=== PATIENT | female | born 1960 | race Caucasian/White ===

== ENCOUNTER 2018-03-26 11:26 | Outpatient (CLI) | payer OTHER ==
--- NOTE | 2018-03-26 11:57 | MRI ---
MRI CERVICAL SPINE WITHOUT CONTRAST: INDICATIONS: Neck pain. Cervical radiculopathy with numbness to the left upper extremity. TECHNIQUE: Multiplanar, multisequential imaging of the cervical spine obtained. FINDINGS: The cervical vertebrae maintain height and alignment. There are mild to moderate degenerative change s present with anterior osteophytes from the cervical vertebrae. Mild loss of disk space at C6-C7. No significant disk bulge or spondylosis at C2-C3. Very mild spondylytic change at C3-C4, flattening the thecal sac. The anterior subarachnoid space is preserved. There is evidence of mild right fora dorene narrowing, due to facet and uncinate hypertrophy. At C4-C5, mild disk bulge and spondylosis flatten the thecal sac and mildly efface the anterior subar achnoid space. Mild bilateral foraminal narrowing from facet and uncinate hypertrophy, more prominen t on the left due to prominent facet hypertrophy. At C5-C6, there is a pronounced disk bulge and spondylosis impinging on and mildly flattening the ant erior cord. Evidence of mild bilateral encroachment from facet and uncinate hypertrophy. At C6-C7, a prominent disk osteophyte complex projects centrally and to the left, impinging on and fl attening the anterior cord. This displaces the traversing and exiting nerve root on the left. Cord signal is normally maintained. IMPRESSION: Prominent disk bulge and spondylosis at C5-C6 and at C6-C7 impinge on the cord at both levels, as loretta cribed above. POS: ABDOUL
== END 2018-03-26 11:27 | disposition home or self-care (01) ==
LOC: TBSIIMAG 11:26
PROVIDERS: ATTEND Family Medicine
DX: M50.122 Cervical disc disorder at C5-C6 level with radiculopathy (principal); M47.22 Other spondylosis with radiculopathy, cervical region
CPT/HCPCS: 72141

== ENCOUNTER 2018-04-20 11:27 | Outpatient (CLI) | payer OTHER | END 2018-04-20 11:28 | disposition home or self-care (01) | LOC: BICMAMMO 11:27 | PROVIDERS: ATTEND Obstetrics & Gynecology | DX: Z12.31 Encounter for screening mammogram for malignant neoplasm of breast (principal); Z80.3 Family history of malignant neoplasm of breast | CPT/HCPCS: 77063; 77067 ==

== ENCOUNTER 2018-04-29 15:51 | Outpatient (CLI) | payer OTHER | END 2018-04-29 15:52 | disposition home or self-care (01) | LOC: DTY/OP 15:51 | PROVIDERS: ATTEND Neurological Surgery | DX: E11.9 Type 2 diabetes mellitus without complications (principal); E78.5 Hyperlipidemia, unspecified; I10 Essential (primary) hypertension | CPT/HCPCS: 97802 ==

== ENCOUNTER 2018-05-25 15:54 | Outpatient (CLI) | payer OTHER | END 2018-05-25 15:55 | disposition home or self-care (01) | LOC: DTY/OP 15:54 | PROVIDERS: ATTEND Neurological Surgery | DX: E78.5 Hyperlipidemia, unspecified (principal); E11.9 Type 2 diabetes mellitus without complications; I10 Essential (primary) hypertension | CPT/HCPCS: 97802 ==

== ENCOUNTER 2018-06-28 15:37 | Outpatient (CLI) | payer OTHER | END 2018-06-28 15:38 | disposition home or self-care (01) | LOC: DTY/OP 15:37 | PROVIDERS: ATTEND Neurological Surgery | DX: E78.5 Hyperlipidemia, unspecified (principal); E11.9 Type 2 diabetes mellitus without complications; I10 Essential (primary) hypertension | CPT/HCPCS: 97802 ==

== ENCOUNTER 2018-06-30 09:12 | Outpatient (CLI) | payer OTHER ==
[~2018-06-30 09:12] MED LIST: Iopamidol 370 76% 100 ML VIAL ONE
--- NOTE | 2018-06-30 15:35 | CT ---
CT ABDOMEN AND PELVIS WITH CONTRAST: Comparison: 10-21-16 History: Right lower quadrant pain for 8 days. Technique: Multiple contiguous axial images were obtained in a CT of the abdomen and pelvis with cont rast. PO contrast was administered. Coronal reformats were performed. FINDINGS: There is diffuse fatty infiltration of the liver. A gastric band is seen at the gastroesophageal junc tion. The kidneys, adrenal glands, spleen, and pancreas are unremarkable. No free air, free fluid, or stranding changes are seen in the abdomen or pelvis. The patient is status post hysterectomy. The large and small bowel are unremarkable. The appendix is not definitely seen. There is a small 2.2 cm right inguinal hernia containing one wall of bowel. The bowel is nonobstructed. Multiple laparoscopic maxi are seen in the midline of the abdomen from owen or hernia repair. No abdominal or pelvic lymphadenopathy are seen. Degenerative changes are seen in the spine. There is dilatation of the distal esophagus which also demonstrates wall thickening. The visualized inferior thorax is unremarkable. IMPRESSION: 1. Small stable right inguinal hernia without evidence of bowel obstruction. 2. Fatty liver. POS: TPC
== END 2018-06-30 09:13 | disposition home or self-care (01) ==
LOC: SCSCT 09:12
PROVIDERS: ATTEND Family Medicine
DX: R10.31 Right lower quadrant pain (principal); K40.90 Unilateral inguinal hernia, without obstruction or gangrene, not specified as recurrent; K76.0 Fatty (change of) liver, not elsewhere classified
CPT/HCPCS: 74177

== ENCOUNTER 2018-07-07 15:51 | Outpatient (CLI) | payer OTHER ==
--- NOTE | 2018-07-07 16:55 | RAD ---
CERVICAL SPINE 3 VIEWS: Date: 07/07/18 HISTORY: Neck pain. Abnormal MRI. FINDINGS: Lateral views include flexion, neutral, and extension positioning. Vertebral body heights and alignme nt are maintained. Disc space narrowing at the C6-7 level. Osteophytosis throughout the lower vertebr al bodies and facets. No abnormal translational motion. IMPRESSION: Mild degenerative changes lower cervical spine. POS: ABDOUL
== END 2018-07-07 15:52 | disposition home or self-care (01) ==
LOC: TBSIIMAG 15:51
PROVIDERS: ATTEND Neurological Surgery
DX: M47.22 Other spondylosis with radiculopathy, cervical region (principal)
CPT/HCPCS: 72040

== ENCOUNTER 2018-08-02 15:12 | Outpatient (CLI) | payer OTHER | END 2018-08-02 15:13 | disposition home or self-care (01) | LOC: DTY/OP 15:12 | PROVIDERS: ATTEND Surgery | DX: E11.9 Type 2 diabetes mellitus without complications (principal); E78.5 Hyperlipidemia, unspecified; I10 Essential (primary) hypertension | CPT/HCPCS: 97802 ==

== ENCOUNTER 2018-09-16 10:23 | Observation (INO) | payer OTHER ==
[2018-09-16] MEDS ORDERED: Nitroglycerin 2% Ointment 1 INCH/1 GM Packet ONE (11:03)
[2018-09-16] MEDS ORDERED: Aspirin Chewable 81 MG TAB ONE (11:03)
--- NOTE | 2018-09-16 11:11 | RAD ---
SINGLE VIEW CHEST: Date: 09/16/18 COMPARISON: 02/21/16. HISTORY: Chest pain. FINDINGS: Single view of the chest shows a normal sized cardiomediastinal silhouette. There is no evidence of c onsolidation, mass, or pleural effusion. The bones are unremarkable. IMPRESSION: No evidence of acute cardiopulmonary disease. POS: TPC
[2018-09-16 11:16] LABS: #Basophils 0.1 thou/uL (0.0-0.2); #Eosinphils 0.3 thou/uL (0.0-0.7); #Lymphocytes 1.8 thou/uL (1.20-3.40); #Monocytes 0.3 thou/uL (0.11-0.59); #Neutrophils 2.1 thou/uL (1.40-6.50); %Basophils 2.8 % (0.0-1.0); %Eosinophils 5.7 % (0.0-10.0); %Lymphocytes 38.9 % (21.0-51.0); %Monocytes 7.2 % (0.0-10.0); %Neutrophils 45.4 % (42.0-75.0); Hemoglobin 10.9 g/dL (12.0-16.0); Mean Corpuscular HGB CONC 30.8 g/dL (32.0-36.0); Mean Corpuscular Hemoglobin 29.7 pg (27.0-31.0); Mean Corpuscular Volume 96.4 fL (78.0-98.0); Mean Platelet Volume 6.6 fL (7.4-10.4); Platelet Count 293 thou/uL (130-400); RBC Distribution Width 12.8 % (11.5-14.5); Red Blood Cell (RBC) Count 3.68 mill/uL (4.20-5.40); White Blood Cell (WBC) Count 4.6 thou/uL (4.8-10.8)
[2018-09-16 11:37] LABS: ALT (SGPT) 25 U/L (8-55); AST (SGOT) 44 U/L (5-34); Albumin 4.2 g/dL (3.5-5.0); Alkaline Phosphatase 36 U/L (40-150); Anion Gap 14 mmol/L (10-20); BUN (Urea Nitrogen) 21 mg/dL (9.8-20.1); Bilirubin, Total 0.2 mg/dL (0.2-1.2); Calc. Creatinine Clearance 0 mL/min (70-130); Calcium 9.6 mg/dL (7.8-10.44); Carbon Dioxide 24 mmol/L (22-29); Chloride 107 mmol/L (98-107); Estimated GFR-MDRD 84; Globulin 2.8 g/dL (2.4-3.5); Glucose 95 mg/dL (70-105); Lipase 26 U/L (8-78); Potassium 4.8 mmol/L (3.5-5.1); Sodium 140 mmol/L (136-145)
--- NOTE | 2018-09-16 13:19 | CT ---
FEXAM: CT pulmonary angiogram with IV contrast and 3-D MIP reconstructions PROVIDED CLINICAL HISTORY: Chest pain COMPARISON: CT of the abdomen and pelvis dated June 30, 2018 and October 21, 2016 FINDINGS: There is no evidence for central or segmental pulmonary embolus. There is a 5 mm pulmonary nodule wit hin the lingula. There is a calcified granuloma within the right upper lobe. There is a 4 mm pulmonar y nodule within the right upper lobe adjacent to the right minor fissure. No pleural fluid or pneumot horax apparent. No evidence for thoracic lymph node enlargement. The airway appears patent and of nor mal caliber. There is stable achalasia of the esophagus. There is a gastric band involving the gastri c cardia. There is infiltration of the liver. The gallbladder is surgically absent. The osseous struc tures demonstrate no concerning lytic or blastic lesions. IMPRESSION: No evidence for central or segmental pulmonary embolus. Stable esophageal achalasia and gastric band. Small scattered pulmonary nodules. Follow-up CT examination in one year is recommended document daniel ware. Fatty liver
[2018-09-16 14:54] LABS: Troponin I Less than 0.010 ng/mL (< 0.028)
[2018-09-16] MEDS ORDERED: Iopamidol 370 76% 100 ML VIAL ONE (14:56)
[2018-09-16 16:48] VITALS: BMI 42.9
[2018-09-16 16:51] VITALS: BP 110/57; TEMP 98.1
[2018-09-16] MEDS ORDERED: Nitroglycerin 2% Ointment 1 INCH/1 GM Packet TOP SCH (18:00)
[2018-09-16 18:21] LABS: Troponin I Less than 0.010 ng/mL (< 0.028)
--- NOTE | 2018-09-17 00:35 | SS ---
DATE OF ADMISSION: 09/16/2018 DATE OF DISCHARGE: 09/16/2018 CONSULTING PHYSICIANS: None. DISCHARGE DIAGNOSES: 1. Esophageal spasm secondary to history of achalasia. 2. Incidental lung nodules, for repeat CT imaging. 3. Hypertension. 4. Hyperlipidemia. 5. Diabetes mellitus. 6. Anxiety. HOSPITAL COURSE: Ms. Guzmán is a very pleasant 57-year-old woman who presented to the ER today after experiencing an episode of central chest pain at approximately 9:00 a.m. this morning, lasting 1 hour. She describes a squeezing sensation in the center of her chest and through her back, which was a 10/10 in severity. The pain then eased on its own to a 3/10 and eventually resolved fully. She has had no further episode since then. At the time that it started, she was at work, sitting on a chair and talking to her boss. She denies any associated diaphoresis, nausea, or vomiting. Denies having any shortness of breath. The discomfort did not radiate to her neck or arms. Denies having any paresthesias or numbness to either arm. Denies any abdominal pain or cramping. In recent days, she has felt very well and denies having any cough or hemoptysis. No fevers, chills, or sweats. She has had a normal appetite. Denies any weight loss. Bowel movements have been normal and she denies any urinary symptoms. The patient has undergone recent cardiac investigations including an echo and stress test in May 2018 which were unremarkable. Her medical accounting clerk is Dr. Szymanski. She is scheduled to see him in 6 months. She denies undergoing any catheterization in the past. She had an episode of chest pain in 2014 and investigations done at that time were normal. The patient underwent an EKG in the ER, which was unremarkable. She has had serial troponins, all unremarkable. The patient has undergone CT angiogram of the chest due to elevated D-dimer, however, no evidence of PE noted. She did however have achalasia that appear stable. It is possible her episode was more so due to esophageal spasming. She has been symptomatic intermittently with dysphagia. She underwent a colonoscopy and upper endoscopy in May 2018. She had been told several years ago she had erosive esophagitis. However, this seemed to have been significantly improved on more recent endoscopy. She was incidentally found to have lung nodules, which will need to be followed up with repeat imaging to ensure they remain stable. Recent colonoscopy per patient was unremarkable. Given negative serial troponins with recent cardiac investigations that are normal, she is medically cleared for discharge. REVIEW OF SYSTEMS: Apart from those mentioned above in hospital course, all other review of systems are negative. The patient reports having occasional difficulty with swallowing, usually with meat and describes some mild discomfort. She has never experienced any regurgitation or feeling as if her food gets completely stuck. She states this happens occasionally. She has undergone barium swallow studies in the past. She does not recall the results of this. On CT imaging done in the ER, she was noted to have stable achalasia. ALLERGIES: ADHESIVE TAPE. CURRENT MEDICATIONS: 1. Vitamin D2. 2. Lorazepam. 3. Fenofibrate. 4. Nexium. 5. Rosuvastatin. 6. Lisinopril. 7. Metformin. 8. Trintellix. PAST MEDICAL HISTORY: 1. Hypertension. 2. Anxiety. 3. Hyperlipidemia. 4. Diabetes mellitus. 5. Achalasia. PAST SURGICAL HISTORY: 1. Cholecystectomy. 2. Hysterectomy. 3. Gastric banding. SOCIAL HISTORY: The patient denies any tobacco use or illicit drug use. She drinks alcohol socially. PHYSICAL EXAMINATION: GENERAL: The patient appears well developed, well nourished, is in no acute distress. VITAL SIGNS: Temperature 98.1, pulse 64, respirations 16, O2 saturation 92% on room air, blood pressure 110/57. HEENT: Normocephalic and atraumatic. Pupils are equal, round, and reactive to light. Sclerae are icterus. Oropharynx is clear. NECK: Supple without lymphadenopathy. LUNGS: Clear to auscultation bilaterally without wheezes, rales, or rhonchi. CARDIAC: Regular rate and rhythm without audible murmurs, rubs, or gallops. ABDOMEN: Obese, soft, nontender, nondistended. Normoactive bowel sounds present. No guarding or rigidity. No renal angle tenderness. EXTREMITIES: No lower leg edema. No calf tenderness. NEUROLOGIC: Alert and oriented x3. SKIN: Without rash or jaundice. LABORATORY DATA: White blood count 4.6, hemoglobin 10.9, hematocrit 35.5, platelets 293. D-dimer 0.53. Sodium 140, potassium 4.8, chloride 107, carbon dioxide 24, anion gap 14, BUN 21, creatinine 0.72, GFR 84, glucose 95, calcium 9.6, total bilirubin 0.2, AST 44, ALT 25, alkaline phosphatase 36. Troponin negative x3. Total protein 7.0, albumin 4.2, globulin 2.8, lipase 26. IMAGING DATA: 1. Chest x-ray. No evidence of acute cardiopulmonary disease. 2. CT angiogram of the chest. No evidence of central or segmental pulmonary embolus. Stable esophageal achalasia and gastric banding. Small, scattered pulmonary nodules. Followup CT examination in one year is recommended to document stability. Fatty liver infiltration noted. CONDITION: Stable at discharge. ACTIVITY: As tolerated. DIET: Heart healthy/diabetic diet. DISCHARGE MEDICATIONS: The patient advised to resume home medications. FOLLOWUP: The patient advised to follow up with her primary care physician within one week regarding the possibly clinical worsening of achalasia. Also regarding followup imaging for lung nodules found on CT angiogram. The patient was advised to follow up with her medical accounting clerk within the next couple of weeks to ensure there is no indication for repeat catheterization. DISPOSITION: Medically cleared for discharge home today, September 16, 2018. The patient's case was discussed with Dr. Rivera, who agrees with the plan of care as described above. Job ID: [id number]
== END 2018-09-16 19:20 | disposition home or self-care (01) ==
LOC: SCSER 10:23 → ERHOLD 14:38 → 2SW 16:42
PROVIDERS: ADMIT Internal Medicine; ATTEND Internal Medicine
DX: K22.0 Achalasia of cardia (principal); R07.9 Chest pain, unspecified; R91.8 Other nonspecific abnormal finding of lung field; I10 Essential (primary) hypertension; E78.5 Hyperlipidemia, unspecified; E11.9 Type 2 diabetes mellitus without complications; F41.9 Anxiety disorder, unspecified; Z79.84 Long term (current) use of oral hypoglycemic drugs; Z79.899 Other long term (current) drug therapy; Z91.048 Other nonmedicinal substance allergy status; Z98.890 Other specified postprocedural states
CPT/HCPCS: 36415; 71045; 71275; 80053; 83690; 84484; 85025; 85379; 93005; 94760; 96360; G0378; Q9967

== ENCOUNTER 2018-11-15 16:30 | Inpatient (IN) | payer OTHER ==
[2018-11-15 16:12] VITALS: BMI 43.9
[2018-11-22] MEDS ORDERED: Fentanyl 100 MCG/2 ML VIAL ONE (06:25)
[2018-11-22] MEDS ORDERED: Heparin 5,000 UNITS/ML VIAL ONE (06:39)
[2018-11-22] MEDS ORDERED: Midazolam HCl 2 mg/2 ml Vial ONE (07:12)
[2018-11-22] MEDS ORDERED: Bupivacaine/Epinephrine 0.25% 30 ML VIAL ONE (07:12)
[2018-11-22] MEDS ORDERED: Levofloxacin 500 mg/D5W 100 ml Premix Bag ONE (07:54)
[2018-11-22] MEDS ORDERED: SUGAMMADEX SODIUM 500 MG/5 ML VIAL ONE (08:46)
[2018-11-22] MEDS ORDERED: methylPREDNISolone Sod Succ 40 MG VIAL ONE (08:46)
[2018-11-22] MEDS ORDERED: Ondansetron PF 4 MG/2 ML Vial IVP PRN (09:02)
[2018-11-22] MEDS ORDERED: Dextrose 50% Abboject 50 ML SYRINGE SLOW IVP PRN (09:02)
[2018-11-22] MEDS ORDERED: Dextrose 5% in Water 1,000 ML IV PRN (09:02)
[2018-11-22] MEDS ORDERED: hydrALAZINE 20 MG/ML VIAL SLOW IVP PRN (09:02)
[2018-11-22] MEDS ORDERED: Hydrocodone-Acetamin 15 ML UDCUP PO PRN (09:02)
[2018-11-22] MEDS ORDERED: Insulin Regular 300 UNITS/3 ML VIAL SC PRN (09:02)
[2018-11-22] MEDS ORDERED: Promethazine HCl 25 MG/ML VIAL IM PRN ×3 (09:02→09:17)
[2018-11-22] MEDS ORDERED: Naloxone HCl 0.4 mg/ml Vial IV PRN (09:17)
[2018-11-22] MEDS ORDERED: diphenhydrAMINE 50 MG/ML VIAL IM PRN (09:17)
[2018-11-22] MEDS ORDERED: Zolpidem Tartrate 5 MG TAB PO PRN (09:17)
[2018-11-22] MEDS ORDERED: diphenhydrAMINE 25 MG CAP PO PRN (09:17)
[2018-11-22] MEDS ORDERED: fentaNYL Citrate/PF 2,000 MCG in Sodium Chloride 0.9% 60 ML IV PRN (09:17)
[2018-11-22] MEDS ORDERED: Promethazine HCl 25 MG/ML VIAL SLOW IVP PRN (09:17)
[2018-11-22] MEDS ORDERED: Ondansetron HCl/PF 4 MG/2 ML Vial IVP PRN (09:17)
[2018-11-22] MEDS ORDERED: Sodium Chloride 0.9% (PF) 10 ML VIAL FS PRN (09:18)
[2018-11-22] MEDS ORDERED: Communication Order-Pharmacy FS SCH (09:30)
--- NOTE | 2018-11-22 10:34 | OP ---
DATE OF PROCEDURE: 11/22/2018 PREOPERATIVE DIAGNOSIS: Dysfunctional lap band with morbid obesity. PROCEDURE PERFORMED: Laparoscopic removal of lap band port, sleeve gastrectomy, and esophagogastroscopy. INDICATIONS: A 58-year-old female, who had a lap band placed about 12 years ago. Initially did well, then had multiple problems with it. Unable to maintain any restriction, gained all her weight back, developed diabetes. FINDINGS: Intact band and port. DESCRIPTION OF PROCEDURE: After informed consent was obtained. The patient was taken to the operating room, given general endotracheal anesthesia, placed in the supine position. Abdomen was prepped and draped in usual fashion. Local anesthesia infiltrated subcutaneously and deep a 12 mm incision was performed approximately 8 inches above the xiphoid slightly to the left. A Veress needle inserted. Drop test performed. Pneumoperitoneum was created to a volume of 2 L of carbon dioxide. Utilizing a bladeless 12 mm trocar and 0-degree laparoscope, direct visual entry into the abdominal cavity was performed. Pneumoperitoneum was created to a pressure of 15 mmHg, and the patient was placed in steep reverse Trendelenburg position. Lloyd liver retractor inserted, left lobe of the liver retracted superiorly. The pylorus was identified. A 12 mm port placed on the right beneath it and two 12s placed left subcostal. The omentum was taken off the greater curvature 5 cm from the pylorus utilizing the LigaSure. Short gastrics divided with LigaSure. Left crura defined with LigaSure. A 38-[place] bougie inserted directing into the antrum. The linear 60 mm green load stapler used to divide the antrum to the bougie, gold load along the bougie, and a series of blues through the angle of His. An additional gold was also used where the stomach was thicker, where the band had been as well. Intraoperative endoscopy was then performed. The video endoscope inserted under direct vision and was advanced into the sleeve. The staple line was inspected. There was no bleeding. Staple line then tested by inflating the new stomach with pressurized air and water. Prior to any of the stapling, the lap band was found. The tubing divided. The tubing was tracked down to the buckle. The buckle was dissected. The buckle was opened and removed, then taken from around the stomach and removed from the abdomen. After the stapling was done and the scope was done, then the incision was enlarged in the left lateral incision and the port was dissected out and removed. Then, the remnant of the stomach was grasped and brought through this opening and sent to pathology for further analysis. The fascia closed with 0 Vicryl suture and the GraNee needle. Trocars and retractors removed. The skin closed with interrupted 4-0 Rapide. Dermabond applied. The patient tolerated the procedure well, transferred to Recovery in good condition. Sponge and needle count verified correct x2. Job ID: [id number]
[2018-11-22] MEDS: 1/2 NS w/KCL 20 mEq 1,000 ML IV SCH ×2 (11:59→17:12)
[2018-11-22] MEDS ORDERED: Ketorolac Tromethamine 30 MG/ML VIAL IVP SCH (12:00)
[2018-11-22] MEDS: diphenhydrAMINE 50 MG/ML VIAL IVP PRN ×5 (12:00→22:15)
[2018-11-23] MEDS: diphenhydrAMINE 50 MG/ML VIAL IVP PRN ×6 (01:24→21:18)
[2018-11-23] MEDS: 1/2 NS w/KCL 20 mEq 1,000 ML IV SCH ×2 (01:26→08:22)
[2018-11-23] MEDS: Ondansetron PF 4 MG/2 ML Vial IVP PRN ×3 (05:17→19:04)
[2018-11-23 05:35] LABS: #Lymphocytes 1.6 thou/uL (1.20-3.40); #Monocytes 0.6 thou/uL (0.11-0.59); #Neutrophils 5.4 thou/uL (1.40-6.50); %Basophils 0.4 % (0.0-1.0); %Eosinophils 0.1 % (0.0-10.0); %Lymphocytes 21.1 % (21.0-51.0); %Monocytes 7.4 % (0.0-10.0); %Neutrophils 70.9 % (42.0-75.0); Hemoglobin 11.4 g/dL (12.0-16.0); Mean Corpuscular HGB CONC 32.9 g/dL (32.0-36.0); Mean Corpuscular Hemoglobin 31.4 pg (27.0-31.0); Mean Corpuscular Volume 95.5 fL (78.0-98.0); Mean Platelet Volume 6.8 fL (7.4-10.4); Platelet Count 317 thou/uL (130-400); RBC Distribution Width 12.2 % (11.5-14.5); Red Blood Cell (RBC) Count 3.62 mill/uL (4.20-5.40); White Blood Cell (WBC) Count 7.6 thou/uL (4.8-10.8)
[2018-11-23 05:45] LABS: Anion Gap 11 mmol/L (10-20); BUN (Urea Nitrogen) 12 mg/dL (9.8-20.1); Calc. Creatinine Clearance 165 mL/min (70-130); Carbon Dioxide 27 mmol/L (22-29); Chloride 106 mmol/L (98-107); Estimated GFR-MDRD Greater than 90; Glucose 99 mg/dL (70-105); Sodium 139 mmol/L (136-145)
[2018-11-23] MEDS: Pantoprazole 40 MG VIAL IVP SCH (08:08)
[2018-11-23] MEDS: Enoxaparin Sodium 40 MG/0.4 ML SYRINGE SC SCH (08:13)
--- NOTE | 2018-11-23 09:08 | RAD ---
15 cc Gastrografin swallow: 11/23/2018 HISTORY: Evaluate for leak or obstruction following gastric sleeve procedure. FINDINGS: The patient ingested 15 cc of Gastrografin and the contrast media was followed from the dis peyton esophagus to the duodenum. No evidence for leak or obstruction is seen. Of note, there is marked delay of contrast media passing through the stomach, especially at the region of the gastric f undus/proximal body. Exposure data: 2.4 minutes fluoroscopic time, 33.933 Gy per centimeter squared IMPRESSION: No evidence for leak or obstruction. Slow transit of the contrast media through the proxi mal aspect of the stomach.
[2018-11-23] MEDS ORDERED: fentaNYL Citrate/PF 2,000 MCG in Sodium Chloride 0.9% 60 ML IV PRN (12:46)
[2018-11-23] MEDS: D5 1/2 NS w/20 mEq KCL 1,000 ML IV SCH ×2 (16:48→23:30)
[2018-11-23] MEDS ORDERED: Hydrocodone-Acetamin 15 ML UDCUP PO PRN (21:52)
[2018-11-23] MEDS: Ketorolac Tromethamine 30 MG/ML VIAL IVP SCH (23:25)
[2018-11-23] MEDS: Acetaminophen 1,000 MG in Premix Bag 1 BAG IVPB SCH (23:25)
[2018-11-24] MEDS: Ketorolac Tromethamine 30 MG/ML VIAL IVP SCH ×2 (05:15→11:22)
[2018-11-24] MEDS: Acetaminophen 1,000 MG in Premix Bag 1 BAG IVPB SCH ×2 (05:15→11:21)
[2018-11-24] MEDS: Enoxaparin Sodium 40 MG/0.4 ML SYRINGE SC SCH (08:39)
[2018-11-24] MEDS: Pantoprazole 40 MG VIAL IVP SCH (08:40)
[2018-11-24] MEDS: D5 1/2 NS w/20 mEq KCL 1,000 ML IV SCH (08:41)
[2018-11-24] MEDS: Ondansetron PF 4 MG/2 ML Vial IVP PRN (08:58)
--- NOTE | 2018-11-24 09:48 | DIS ---
DATE OF ADMISSION: 11/22/2018 DATE OF DISCHARGE: 11/23/2018 DISCHARGE DIAGNOSES: Lap band intolerance, morbid obesity. PROCEDURES DURING ADMISSION: Laparoscopic removal of band and port, sleeve gastrectomy, intraoperative esophagogastroscopy, and postoperative Gastrografin swallow. HOSPITAL COURSE: The patient was admitted, taken to the operating room where she underwent a removal of band and port with conversion to sleeve. Postoperatively, she has done well. She had a little bit of nausea. Her x-ray was fine. She is now tolerating liquids well. She will be discharged in good condition on hydrocodone and Zofran. She will follow up with me in 1 week. Job ID: [id number]
--- NOTE | 2018-11-24 10:37 | PRG ---
DATE OF SERVICE: 11/24/2018 SUBJECTIVE: The patient was seen and examined for medical management. The pain is controlled at this time. She had some issues with hypoglycemia, that has improved. She denies any fevers, chills, chest pain, shortness of breath, or lower extremity edema. REVIEW OF SYSTEMS: All other review of systems was reviewed and was found negative. PHYSICAL EXAMINATION: VITAL SIGNS: Temperature 98.5, pulse rate of 67, respirations of 16, blood pressure 102/68, and O2 saturations 93% on room air. GENERAL: A 58-year-old female, in no apparent distress. Pain controlled. LUNGS: Clear to auscultation bilaterally. No wheezing, rales, or rhonchi. HEART: S1, S2 present. Regular rate and rhythm. ABDOMEN: Soft. Bowel sounds present. EXTREMITIES: No edema or calf tenderness. NEUROLOGIC: Grossly nonfocal. LABORATORY FINDINGS: WBC 7.6, hemoglobin 11.4, hematocrit 34.5, platelets 317. Chemistry showed sodium 139, potassium 5, chloride 106, bicarb 27, BUN 12, creatinine 0.67. Hemoglobin A1c 5.8. IMPRESSION: 1. Status post sleeve gastrectomy. 2. Hypertension. 3. Diabetes mellitus, type 2 with hypoglycemia. 4. Anxiety. 5. Morbid obesity with a BMI of 43.9. 6. Chronic normochromic normocytic anemia. 7. History of esophageal spasm due to achalasia. PLAN: We will continue to monitor Accu-Cheks before meals and at bedtime. Metformin will be held. We will continue IV fluids with dextrose until tolerating p.o. GI prophylaxis. Her last blood pressure was 102/68. We will hold lisinopril for now. We will continue to monitor. DVT prophylaxis with SCDs as well as Lovenox. Job ID: [id number]
[2018-11-24 11:17] VITALS: BP 106/66; TEMP 98
--- NOTE | 2018-11-24 12:00 | DIS ---
DATE OF ADMISSION: 11/22/2018 DATE OF DISCHARGE: 11/24/2018 DISCHARGE DIAGNOSES: Band intolerance and morbid obesity. PROCEDURES DURING ADMISSION: Laparoscopic removal of band and port, sleeve gastrectomy, intraoperative esophagogastroduodenoscopy, postoperative Gastrografin swallow. HOSPITAL COURSE: The patient was admitted and taken to the operating room, where she underwent port and band removal, sleeve gastrectomy. Postoperatively, she had an x-ray that was fine, but she had excessive nausea, turned out, it was related to the narcotics. Once that was stopped, she is fine. She is tolerating liquids well. Pain is controlled. She is discharged home on Zofran. I have also given her some hydrocodone just in case, otherwise she will take liquid Tylenol. Job ID: [id number]
== END 2018-11-24 12:45 | disposition home or self-care (01) | DRG 327 ==
LOC: SURG A 11-22 05:55 → SURG B 11-22 11:53 → EDSTATUS 11-22 16:30
PROVIDERS: ADMIT Surgery; ATTEND Surgery
PROC: 0DP64CZ Removal of Extraluminal Device from Stomach, Percutaneous Endoscopic Approach (ICD-10-PCS; principal; 2018-11-22)
PROC: 0DB64Z3 Excision of Stomach, Percutaneous Endoscopic Approach, Vertical (ICD-10-PCS; 2018-11-22)
PROC: 0DJ08ZZ Inspection of Upper Intestinal Tract, Via Natural or Artificial Opening Endoscopic (ICD-10-PCS; 2018-11-22)
DX: K95.09 Other complications of gastric band procedure (principal); Z68.41 Body mass index [BMI] 40.0-44.9, adult; E66.01 Morbid (severe) obesity due to excess calories; I10 Essential (primary) hypertension; F41.9 Anxiety disorder, unspecified; E11.649 Type 2 diabetes mellitus with hypoglycemia without coma; Z79.84 Long term (current) use of oral hypoglycemic drugs; Z79.899 Other long term (current) drug therapy
CPT/HCPCS: 36415; 36416; 74241; 80048; 85025; 88307; 88312; 94760; C9113; J0131; J0690; J1200; J1644; J1650; J1885; J1956; J2250; J2405; J2920; J3010; J3480; J3490; Q0163

== ENCOUNTER 2018-12-17 11:53 | Outpatient (CLI) | payer OTHER ==
--- NOTE | 2018-12-17 12:12 | RAD ---
EXAM: Chest 2 views: HISTORY: Solitary lung nodule COMPARISON: 11/15/2018 FINDINGS: There is a normal-sized cardiomediastinal silhouette. There is no evidence of consolidation, mass, or pleural effusion. The bones are unremarkable. IMPRESSION: No evidence of acute cardiopulmonary disease
== END 2018-12-17 11:54 | disposition home or self-care (01) ==
LOC: SCSRAD 11:53
PROVIDERS: ATTEND Family Medicine
DX: R91.1 Solitary pulmonary nodule (principal)
CPT/HCPCS: 71046

== ENCOUNTER 2019-03-07 17:03 | Outpatient (CLI) | payer OTHER ==
[2019-03-07 17:39] LABS: Hemoglobin 12.3 g/dL (12.0-16.0); Mean Corpuscular HGB CONC 33.3 g/dL (32.0-36.0); Mean Corpuscular Hemoglobin 31.8 pg (27.0-31.0); Mean Corpuscular Volume 95.4 fL (78.0-98.0); Mean Platelet Volume 7.3 fL (7.4-10.4); Platelet Count 344 thou/uL (130-400); Red Blood Cell (RBC) Count 3.88 mill/uL (4.20-5.40)
[2019-03-07 17:46] LABS: PTT 26.9 SEC (22.9-36.1); Prothrombin Time 12.8 SEC (12.0-14.7)
== END 2019-03-07 17:04 | disposition home or self-care (01) ==
LOC: LABBT 17:03
PROVIDERS: ATTEND Neurological Surgery
DX: Z01.812 Encounter for preprocedural laboratory examination (principal); M50.122 Cervical disc disorder at C5-C6 level with radiculopathy
CPT/HCPCS: 85027; 85610; 85730

== ENCOUNTER 2019-03-15 05:44 | Day surgery (SDC) | payer OTHER ==
[2019-03-07 17:19] VITALS: BMI 40.7
--- NOTE | 2019-03-09 20:17 | HP ---
HISTORY OF PRESENT ILLNESS: This is a 58-year-old female with neck and left arm pain. This has been going for almost a year and a half. She states that her left hand, the thumb and pointer and middle fingers get tingly, progressed to numbness and her arm turns into significant pain. If she turns her head just right, her arm will go numb. It wakes her up from sleep. The patient states that she has tried Medrol Dosepak, muscle relaxers, Tylenol No. 3. She has been getting injections, and frustratingly arguing with insurance company over surgery. There are pain and radiating numbness, occasional dropping of items continues without any significant improvement with injections to medications are temporary. REVIEW OF SYSTEMS: A 10-point review of systems has been completed and is negative other than stated in the above HPI. PAST MEDICAL HISTORY: Hypertension, hyperlipidemia, reflux, anxiety, seasonal allergies, arthritis, diabetes. ALLERGIES: LATEX, ADHESIVE TAPE. PAST SURGICAL HISTORY: Hysterectomy, sinus surgery, hernia repair, lap band. FAMILY HISTORY: Father is alive, diagnosed with cancer. Mother is , diagnosed with heart disease, hypertension, and stroke. One brother is due to heart disease and stroke. SOCIAL HISTORY: The patient is a nonsmoker. Denies other tobacco use. Drinks alcohol occasionally. Denies drug use. She is sexually active with her . Drinks occasional coffee. MEDICATIONS: 1. Lyrica. 2. Lisinopril. 3. Nexium. 4. Crestor. 5. Metformin. 6. Trintellix. 7. Fenofibrate. 8. Zyrtec. 9. Multivitamins. 10. Cyclobenzaprine. PHYSICAL EXAMINATION: CONSTITUTIONAL: Well-appearing, well-nourished, alert. RESPIRATIONS: Normal work of breathing on room air. HEENT. Head is normocephalic and atraumatic. Extraocular movements are intact. Hearing is intact. Moist mucous membranes. NECK: Soft, supple. No masses are noted. Range of motion is intact, nonpainful. Spurling's positive. NEUROLOGIC: Awake, alert, oriented x3. Memory, attention, and fund of knowledge are intact. Cranial nerves are tested and intact. EXTREMITIES: 5/5 bilateral strength in deltoids, biceps, triceps, wrist extension, finger extension, finger intrinsics. Decreased sensation in the left hand with significant middle finger decreased sensation back of left arm. Gait and station normal, tandem gait, off-balance. IMAGING STUDIES: MRI, cord compression at C5-C6, C6-C7. ASSESSMENT AND PLAN: Cervical disk disorder at C5-C6 and C6-C7 with radiculopathy and myelopathy. Dr. Aguillon has offered surgery, anterior cervical discectomy and fusion. The patient states that she prefers allograft and states that she is willing to proceed with surgery with the given risks. Job ID: [id number]
[2019-03-15] MEDS ORDERED: Sodium Chloride 0.9% 10 ML ONE (06:17)
[2019-03-15] MEDS ORDERED: Thrombin 5000 UNITS/5 ML VIAL ONE (06:17)
[2019-03-15] MEDS ORDERED: Fentanyl 100 MCG/2 ML VIAL ONE ×3 (06:39→11:20)
[2019-03-15] MEDS ORDERED: Midazolam HCl 2 mg/2 ml Vial ONE ×2 (06:51→08:22)
[2019-03-15] MEDS ORDERED: Ketamine 50 MG/ML (10ML VIAL) ONE (07:01)
[2019-03-15] MEDS ORDERED: Phenylephrine HCL 10 MG/ML VIAL ONE (08:02)
[2019-03-15] MEDS ORDERED: Ondansetron PF 4 MG/2 ML Vial ONE ×2 (10:15→15:41)
[2019-03-15] MEDS ORDERED: HYDROcodone/Acetaminophen 5/325 mg Tablet ONE ×2 (11:45)
[2019-03-15] MEDS ORDERED: tiZANidine HCl 4 MG TAB ONE (13:31)
[2019-03-15] MEDS ORDERED: Ondansetron ODT 4 MG TAB ONE (14:59)
[2019-03-15] MEDS ORDERED: Glycopyrrolate 0.2 MG/ML 5 ML SYRINGE ONE (15:41)
[2019-03-15] MEDS ORDERED: ePHEDrine 50 MG/ML VIAL ONE (15:41)
[2019-03-15] MEDS ORDERED: Rocuronium Bromide 10 MG/ML (10ML VIAL) ONE (15:41)
[2019-03-15] MEDS ORDERED: PROPOFOL 200 MG/20 ML VIAL ONE (15:41)
[2019-03-15] MEDS ORDERED: Lidocaine 2% PF 5 ML VIAL ONE (15:41)
[2019-03-15] MEDS ORDERED: PHENYLEPHRINE-NS 100 MCG/ML 10 ML SYRINGE ONE (15:41)
[2019-03-15] MEDS ORDERED: diphenhydrAMINE 50 MG/ML VIAL ONE (15:41)
--- NOTE | 2019-03-15 16:27 | OP ---
DATE OF PROCEDURE: 03/15/2019 EDUCATIONAL SIGN LANGUAGE INTERPRETER: Velia Richard PA-C PREOPERATIVE INDICATION: Treat pain and prevent neurological deterioration. PREOPERATIVE DIAGNOSES: Cervical intervertebral disk disease at C5-C6 and C6-C7, with both radiculopathy and myelopathy. POSTOPERATIVE DIAGNOSES: Cervical intervertebral disk disease at C5-C6 and C6-C7, with both radiculopathy and myelopathy. PROCEDURES PERFORMED: Anterior cervical diskectomy, intervertebral arthrodesis, placement of intervertebral structural allograft, anterior cervical plating C5-C6 and C6-C7, local morselized autograft, morselized allograft, and operating microscope. PREOPERATIVE MEDICATION: Ancef 2 g IV. DRAIN NUMBER: Zero. DRAIN TYPE: None. DESCRIPTION OF PROCEDURE: The patient was brought to the operating room. General endotracheal anesthesia was induced. The patient was positioned supine on the operating table with her head supported by a gel-filled doughnut shaped headrest. A lateral fluoro radiograph was used to plan our incision. The right side of the neck was sterilely prepped and draped. We opened with a 10 blade knife and controlled bleeding with bipolar cautery. We dissected sharply to the platysma and we cut this muscle in-line with our incision. We continued our dissection medial to the sternocleidomastoid and lateral to the trachea and esophagus. We arrived to the prevertebral space. We placed a marker on the spine and took a lateral fluoro radiograph. We had removed the marker to C3-C4 to count accurately and counted down to the C5-C6 and C6-C7 interspaces. We elevated the longus colli muscles off the anterior surface of the spine from C5 through C7. We placed self-retaining retractors beneath the muscles. Distraction pins were placed at C5 and C7 and we distracted across the intervening interspaces. We incised the interspace with a 15 blade knife and removed disk contents using curettes and rongeurs. The operative microscope was brought in the field. Under microscopic magnification using microsurgical techniques, we removed the remainder of the intervertebral disk. We accessed the ventral epidural space with a microcurette and then using 1 and 2 mm Kerrison rongeurs, we removed posterior osteophytes and posterior longitudinal ligament across the entire interspace from nerve root to nerve root at C5-C6 and again at C6-C7. At the completion of our decompression, the dura was no longer indented. There was good pulsatility. All four nerve roots were decompressed. We irrigated with bacitracin irrigation. We prepared the endplates for grafting. We measured the height of the interspace with a bone rasp within 7 mm. Osteophytes removed during our decompression were cleaned of soft tissue attachments morcellized and added into demineralized bone matrix as part of our fusion substrate. A 7 mm machined allograft was brought into the field. Into the cancellous portion of the allograft, we pushed our bone graft and fusion substrate. We advanced a 7 mm allograft into the respective interspaces under radiographic guidance to the appropriate depth. Distraction pins were removed and the bone was waxed. The operative microscope was taken out of the field. A 28 mm anterior cervical plate was brought in the field. We drilled ferryboat pilot holes through the plate into the vertebral bodies of C5, C6, and C7, and we affixed the plate using 14 mm screws. Fixed angle screws were used at C7 and variable angle screws at C5 and C6. We engaged the locking mechanism over each of the 6 screws. AP and lateral fluoro radiographs confirmed adequate position of our instrumentation. We irrigated once again with bacitracin irrigation. Hemostasis was excellent. We closed the wound in anatomical layers and applied a sterile dressing. This was a clean case, no contamination. Job ID: [id number]
== END 2019-03-15 15:40 | disposition home or self-care (01) ==
LOC: SDC 05:44 → EEVIPCON 17:15
PROVIDERS: ATTEND Neurological Surgery
PROC: 0RG2070 Fusion of 2 or more Cervical Vertebral Joints with Autologous Tissue Substitute, Anterior Approach, Anterior Column, Open Approach (ICD-10-PCS; principal; 2019-03-15)
PROC: 0RT30ZZ Resection of Cervical Vertebral Disc, Open Approach (ICD-10-PCS; principal; 2019-03-15)
PROC: 0RG20K0 Fusion of 2 or more Cervical Vertebral Joints with Nonautologous Tissue Substitute, Anterior Approach, Anterior Column, Open Approach (ICD-10-PCS; principal; 2019-03-15)
DX: M50.022 Cervical disc disorder at C5-C6 level with myelopathy (principal); M50.122 Cervical disc disorder at C5-C6 level with radiculopathy; I10 Essential (primary) hypertension; E11.9 Type 2 diabetes mellitus without complications; E78.5 Hyperlipidemia, unspecified; K21.9 Gastro-esophageal reflux disease without esophagitis; F41.9 Anxiety disorder, unspecified; M19.90 Unspecified osteoarthritis, unspecified site; Z79.899 Other long term (current) drug therapy; Z79.84 Long term (current) use of oral hypoglycemic drugs; Z91.040 Latex allergy status; Z91.048 Other nonmedicinal substance allergy status
CPT/HCPCS: 76000; C1713; J0131; J0690; J1200; J2001; J2250; J2370; J2405; J2704; J3010; J3490; L0174; Q0162

== ENCOUNTER 2019-05-02 12:45 | Outpatient (CLI) | payer OTHER ==
--- NOTE | 2019-05-02 14:16 | MMO ---
Bilateral MAMMO Bilat Screen [facility]. CLINICAL HISTORY: Patient is 58 years old and is seen for screening. The patient has no family history of breast cancer. The patient has no personal history of cancer. VIEWS: The views performed were: bilateral craniocaudal with tomosynthesis and bilateral mediolateral oblique with tomosynthesis. FILMS COMPARED: The present examination has been compared to prior imaging studies performed at [facility] on 12/29/2014, 12/31/2015, 04/17/2017 and 04/20/2018. This study has been interpreted with the assistance of computer-aided detection. MAMMOGRAM FINDINGS: The breasts are almost entirely fat. There are no suspicious masses, suspicious calcifications, or new areas of architectural distortion. IMPRESSION: THERE IS NO MAMMOGRAPHIC EVIDENCE OF MALIGNANCY. A ROUTINE FOLLOW-UP MAMMOGRAM IN 1 YEAR IS RECOMMENDED. THE RESULTS OF THIS EXAM WERE SENT TO THE PATIENT. ACR BI-RADS Category 1 - Negative MAMMOGRAPHY NOTE: 1. A negative mammogram report should not delay a biopsy if a dominant of clinically suspicious mass is present. 2. Approximately 10% to 15% of breast cancers are not detected by mammography. 3. Adenosis and dense breasts may obscure an underlying neoplasm. Reported by: Scot KOHLER Electonically Signed: [id number]
== END 2019-05-02 12:46 | disposition home or self-care (01) ==
LOC: BICMAMMO 12:45
PROVIDERS: ATTEND Obstetrics & Gynecology
DX: Z12.31 Encounter for screening mammogram for malignant neoplasm of breast (principal)
CPT/HCPCS: 77063; 77067

== ENCOUNTER 2019-05-10 12:40 | Outpatient (CLI) | payer OTHER ==
--- NOTE | 2019-05-10 13:11 | RAD ---
XR Cerv Sp Ap Lat STANDARD: 05/10/2019 12:00 AM CLINICAL INDICATION: Pain COMPARISON: 07/07/2018 FINDINGS: Fracture:No fracture. Arthropathy:Mild multilevel cervical spine degenerative change. ACDF spans C5-C7. No hardware complication is visualized. Incidental findings:None of significance. IMPRESSION: No acute osseous abnormality of the postoperative cervical spine.
== END 2019-05-10 12:41 | disposition home or self-care (01) ==
LOC: TBSIIMAG 12:40
PROVIDERS: ATTEND Neurological Surgery
DX: M54.2 Cervicalgia (principal); Z98.890 Other specified postprocedural states
CPT/HCPCS: 72040

== ENCOUNTER 2020-02-13 18:00 | Outpatient (CLI) | payer OTHER | END 2020-02-13 18:01 | disposition home or self-care (01) | LOC: SLEEPLAB 18:00 | PROVIDERS: ATTEND Family Medicine | DX: G47.33 Obstructive sleep apnea (adult) (pediatric) (principal); R53.83 Other fatigue; F32.9 Major depressive disorder, single episode, unspecified; E11.9 Type 2 diabetes mellitus without complications; I10 Essential (primary) hypertension; G47.00 Insomnia, unspecified | CPT/HCPCS: 95806 ==

== ENCOUNTER 2021-11-18 13:54 | Outpatient (CLI) | payer OTHER | END 2021-11-18 13:55 | disposition home or self-care (01) | LOC: TBSIIMAG 13:54 | PROVIDERS: ATTEND Neurological Surgery | DX: M54.12 Radiculopathy, cervical region (principal) | CPT/HCPCS: 72050 ==

== ENCOUNTER 2022-01-14 14:35 | Outpatient (CLI) | payer OTHER | END 2022-01-14 14:36 | disposition home or self-care (01) | LOC: TBSIIMAG 14:35 | PROVIDERS: ATTEND Neurological Surgery | DX: M47.22 Other spondylosis with radiculopathy, cervical region (principal); M48.02 Spinal stenosis, cervical region; M48.03 Spinal stenosis, cervicothoracic region; M43.22 Fusion of spine, cervical region; Z98.1 Arthrodesis status | CPT/HCPCS: 72141 ==

== ENCOUNTER 2024-07-06 09:01 | Outpatient (CLI) | payer OTHER | END 2024-07-06 09:02 | disposition home or self-care (01) | LOC: SCSMRI 09:01 | PROVIDERS: ATTEND Otolaryngology | DX: J32.9 Chronic sinusitis, unspecified (principal); J34.89 Other specified disorders of nose and nasal sinuses; Z98.890 Other specified postprocedural states | CPT/HCPCS: 36415; 70553; 82565 ==